=== PATIENT | male | born 1985 | race Two or more races ===

== ENCOUNTER 2025-06-11 23:09 | Emergency (ER) | payer OTHER ==
[~2025-06-11] VITALS: Ht 175.3 cm; Wt 73.5 kg
[~2025-06-11 23:09] MED LIST: IBU800 MG PO
[2025-06-12] MEDS ORDERED: CEFTRIAXONE SODIUM 1,000 MG VIAL IM ONE (01:30)
[2025-06-12] MEDS ORDERED: SILVER SULFADIAZINE 50 GM JAR TOP ONE (01:30)
[2025-06-12 01:55] LABS: BASO % 0.5 % (0.1-1.2); EOS # 0.09 (0.04-0.54); EOS % 1.4 % (0.7-7.0); LYMPH # 2.61 (1.18-3.74); LYMPH % 40.6 % (19.3-53.1); MEAN PLATELET VOLUME 10.40 fl (9.4-12.4); MONO # 0.62 (0.24-0.82); MONO % 9.6 % (4.7-12.5); NEUT # 3.07 (1.56-6.13); NEUT % 47.7 % (34.0-71.1); RED CELL DISTRIBUTION WIDTH 11.9 % (11.6-14.4)
[2025-06-12] MEDS ORDERED: DUI500 PO (02:47)
== END 2025-06-12 02:50 | disposition home or self-care (01) ==
LOC: ER 23:09
PROVIDERS: General Practice
DX: T14.8XXA Other injury of unspecified body region, initial encounter (principal); X58.XXXA Exposure to other specified factors, initial encounter; Y93.89 Activity, other specified; Y92.89 Other specified places as the place of occurrence of the external cause; Y99.9 Unspecified external cause status

== ENCOUNTER 2025-06-28 12:46 | Emergency (ER) | payer OTHER ==
[~2025-06-28] VITALS: Ht 172.7 cm; Wt 83.9 kg
[~2025-06-28 12:46] MED LIST changes: +DUI500 PO
[2025-06-28 13:31] VITALS: BP 121/81; O2SAT 98
[2025-06-28] MEDS ORDERED: DEXAMETHASONE SODIUM PHOSPHATE 4 MG/ML VIAL IM ONE (14:45)
[2025-06-28] MEDS ORDERED: KETOROLAC TROMETHAMINE 60 MG VIAL IM ONE ×2 (14:45→14:52)
[2025-06-28] MEDS ORDERED: ACETAMINOPHEN 500 MG GEL..CAP PO ONE (14:45)
[2025-06-28] MEDS ORDERED: DEXAMETHASONE SODIUM PHOSPHATE 4 MG/ML VIAL ONE (14:52)
[2025-06-28] MEDS ORDERED: IBUPROFEN400 MG PO (17:42)
[2025-06-28] MEDS ORDERED: NORFLEX100MG PO (17:42)
== END 2025-06-28 18:00 | disposition home or self-care (01) ==
LOC: ER 12:46
DX: S99.822A Other specified injuries of left foot, initial encounter (principal); W18.39XA Other fall on same level, initial encounter; Y93.89 Activity, other specified; Y92.89 Other specified places as the place of occurrence of the external cause